=== PATIENT | male | born 1945 | race Caucasian/White ===

== ENCOUNTER 2017-03-14 19:47 | Inpatient (IN) | payer BC ==
--- NOTE | ~2017-03-14 | CN ---
Consultation Report [place] [id number] [facility] [place]. [address] NAME: JESSY HERNANDEZ : 47 STATUS : ADM IN PAT#: [id number] AGE: 72 ADM/REG DATE : 03/14/17 MR#: [id number] REPORT SERV DATE: 03/15/17 DICTATED BY: MOISÉSYVONNEYUEALEXANDRIA ESQUIVEL DATE: 03/15/17 REPORT STATUS : Draft TRANSCRIBED BY: MODL DATE: 03/15/17 CONSULTATION DATE OF CONSULTATION: 03/14/2017 REASON FOR CONSULTATION: Consulted for preop clearance for surgery. IDENTIFYING DATA: 1. PCP Brent Rachel. 2. Oncology Dr. Juaquin Castellanos. 3. Surgeon Dr. Gil. 4. Folding Machine Feeder Dr. Serna. HISTORY OF PRESENT ILLNESS: This is a pleasant 72-year-old, male, admitted per Dr. Juaquin Lora with sepsis of the right knee. He has a medical history of a bleeding ulcer, malignant melanoma of his back, hypertension and diabetes type 2. We have been consulted, the hospitalist group, to help manage medically and clear for surgery possibly in the a.m. for his right knee. The patient's history was obtained through interview with the patient. There is very little if any of SIGKAT and Juxinli prior to this admission. PAST MEDICAL HISTORY: 1. Bleeding ulcer. 2. Malignant melanoma of the back in 2016. 3. Hypertension. 4. Diabetes type 2. ALLERGIES: NO KNOWN ALLERGIES. MEDICATION: Home medications which are still being evaluated by pharmacy. SOCIAL HISTORY: The patient is for 29 years. He has one adopted daughter and one daughter by his 's previous marriage. They have no children together. 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 He states now that he cares for his at home who has had a CVA. He has three grand-children, lives in a two-story home but he uses bedroom downstairs. No tobacco, rare alcohol use he says it has been two to three months ago, and no illicit drug use. FAMILY HISTORY: Mother was positive for diabetes. Father was positive for hypertension. The patient had one sister who was also diabetic. SURGICAL HISTORY: 1. Kidney stone removal in 2011 and 2013. Consultation Report [address] [id number] [facility] [place]. [address] NAME: JESSY HERNANDEZ : 47 STATUS : ADM IN PAT#: [id number] AGE: 72 ADM/REG DATE : 03/14/17 MR#: [id number] REPORT SERV DATE: 03/15/17 DICTATED BY: YUE CURIEL DATE: 03/15/17 REPORT STATUS : Draft TRANSCRIBED BY: ROSANA DATE: 03/15/17 2. Eye surgery on 10/17/2009. 3. Left knee surgery 09/24/2005. 4. Colonoscopy 08/31/2006 and again in 09/17/2013. 5. Hernia surgery 12/21/1999. 6. Removal of a malignant melanoma from his back in 2015. 7. Basal cell cancers removed in 1999 and again in September 2012 on his left arm and chest, and he states previously he has also had a basal cells removed from his face and both ears. REVIEW OF SYSTEMS: Negative other than what is in HPI. The patient has no shortness of breath. No nausea, vomiting. No abdominal pain. No chest pain. Displays no fever. No confusion or agitation. PHYSICAL EXAMINATION: VITAL SIGNS: From today blood pressure 134/67, respiratory rate 20, heart rate 82, temperature 98.3, O2 saturation 97% on room air. GENERAL: This is a pleasant 72-year-old, male, admitted for right knee sepsis. He is resting in bed in no acute distress. Very talkative and pleasant. NEURO: His head is atraumatic, normocephalic. He is alert and oriented x3. His cranial nerves are intact. His mood is pleasant and appropriate. NECK: Supple. Trachea is midline. No JVD noted. No obvious thyromegaly or lymphadenopathy. EENT: Sclerae are nonicteric. Pupils are equal, reactive to light. Nares are patent. Mucous membranes moist. Tongue is midline. No deviation. Soft palate rises equally with phonation. CHEST: No pain with palpation. The patient has Port-A-Cath in place to the right chest. LUNGS: Clear to auscultation bilaterally. He has normal respiratory effort. No increased work of breathing with conversation. CARDIOVASCULAR: S1, S2. No obvious murmurs, rubs, or gallops. The patient is on telemetry, displays a sinus rhythm at a rate of 65 with occasional PVC and PAC noted. ABDOMEN: Soft, nontender. Bowel sounds are active. No palpable organomegaly. EXTREMITIES: He is edematous especially to the right knee. He has normal distal pulses. No calf tenderness. He has TEDs and SCDs placed for DVT prophylaxis. SKIN: Warm and dry. No unusual rashes or lesions. Normal color and turgor for age. PSYCH: The patient is pleasant, cooperative, appropriate mood and affect. LABORATORY DATA: Laboratory data has been just ordered, this was a late consult, it is almost 11 o'clock. We have x-ray and labs pending which would include CMP, CBC, PT, PTT, urinalysis and a type and screen, presently as well as a chest x-ray, and an EKG. Additional labs will be a hemoglobin A1c, TSH, troponin, BNP, a lactate, and a procalcitonin. ASSESSMENT AND PLAN: 1. The patient is diabetic type 2. He states he checks his blood sugars maybe one to two Consultation Report [address] [place]. [address] NAME: JESSY HERNANDEZ : 47 STATUS : ADM IN [facility]#: [id number] AGE: 72 ADM/REG DATE : 03/14/17 MR#: [id number] REPORT SERV DATE: 03/15/17 DICTATED BY: YUE CURIEL DATE: 03/15/17 REPORT STATUS : Draft TRANSCRIBED BY: ROSANA DATE: 03/15/17 time per day at most and other times not at all. We will have a advertising teacher see him. He will be placed on a diabetic diet, a 1500 calorie ADA, when he is n.p.o., after he is off the n.p.o. status, we will initiate fingerstick blood sugars a.c. and h.s. and have a sliding scale level 1 initiated with a hypoglycemic protocol. We will check a blood sugar x1 at 3 a.m. and check a hemoglobin A1c. 2. Hypertension. Aware. The patient is on amlodipine and lisinopril hydrochlorothiazide combo. We will need to hold the lisinopril and the hydrochlorothiazide until all the labs were obtained to make sure he does not have renal insufficiency. 3. Gastroesophageal reflux disease. The patient has a history of a bleeding ulcer in the past. We will place him on a Protonix 40 mg p.o. daily. The patient will also be placed on telemetry with O2 saturation monitoring tonight. The a.m. team may have to evaluate additional labs and orders since they were ordered late for evaluation of preop clearance for surgery. The hospitalist group would like to thank you for this consultation. Please let us know if we could be of further assistance. Pending labs, x-ray, and UA as well as EKG. The patient has no history of cardiac problems. No chest pain. No dyspnea on exertion. No history of sleep apnea or any respiratory problems. Pending labs and additional orders, we would recommend that Dr. Lora could proceed at his discretion for surgery. JOLYNN Yue Curiel NP / [id number] CC: Luis Shine
--- NOTE | ~2017-03-14 | OP ---
Record Of Operation [facility] [address] [place]. [address] NAME: JESSY HERNANDEZ : 47 STATUS : ADM IN PAT#: [id number] AGE: 72 ADM/REG DATE : 03/14/17 MR#: [id number] REPORT SERV DATE: 03/16/17 DICTATED BY: FERNANDO LORA DATE: 03/15/17 REPORT STATUS : Draft TRANSCRIBED BY: MODL DATE: 03/15/17 DATE OF PROCEDURE: 03/15/2017 PREOPERATIVE DIAGNOSIS: Right septic [place] knee. 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 PROCEDURES PERFORMED: Right knee arthroscopic irrigation and debridement with partial medial and lateral meniscectomy, debriding chondroplasty where appropriate, and extensive synovectomy with application of Vinny-Parker drain. SURGEON: Fernando Lora M.D. SHOE RECONDITIONER: Fior Cisneros. ANESTHESIA: General. PROCEDURE IN DETAIL: The patient is clearly identified, and after obtaining informed consent, he is brought to the operating room at [facility] where he is induced under general anesthesia as his right lower extremity prepped and draped in the usual manner. This concluded, after appropriate time-out procedure is performed, elevation exsanguination is performed, time-out procedure is performed, an aspiration of the knee reveals persistent pus in the joint which is sent to pathology for assessment. Subsequently, anteromedial and anterolateral portals performed. Arthroscopy begins revealing pus in the joint, which is all irrigated copiously through the case consisting of nearly 12 liters of fluid. Suprapatellar pouch reveals strands of tissues as well as significant synovitis, which is encountered through the joint, all debrided. Patellofemoral tracking is excellent despite some chondromalacia grade 2-3. The ACL and PCL are intact. The medial compartment reveals a complex meniscal tear, which is treated with partial medial meniscectomy and some chondromalacia which is debrided as well after removing fibrinous bands of tissue and synovitis. The lateral compartment reveals similar findings which is treated again with a partial lateral meniscectomy, debriding chondroplasty, removal of unusual soft tissues, and by palpating the posterior joint, pus is encountered, this is all carefully performed repetitively with pulsatile joint lavage to remove any evidence of cloudy fluid or fluid other than just the saline being run through the joint. This concluded, the joint is inspected, realizing no further care is necessary, a LISA drain is placed in the lateral portal and then the joints and drained, after confirming the drain working nicely, then portals are closed laterally in particular such that when the drain is removed, the portal will close and then the leg is carefully cleansed and dressed. The patient is allowed to awaken and is transferred to the recovery room in stable condition having tolerated the procedure well. ESTIMATED BLOOD LOSS: 10 mL. FLUIDS: 800 mL. Record Of Operation [facility] [address] [facility] [place]. [address] NAME: JESSY HERNANDEZ : 47 STATUS : ADM IN [facility]#: [id number] AGE: 72 ADM/REG DATE : 03/14/17 MR#: [id number] REPORT SERV DATE: 03/16/17 DICTATED BY: FERNANDO LORA DATE: 03/15/17 REPORT STATUS : Draft TRANSCRIBED BY: ROSANA DATE: 03/15/17 TOURNIQUET TIME: Approximately 40 minutes. PATHOLOGY: Sent specimen. MICROBIOLOGY: Sent specimen. COMPLICATIONS: None. SPONGE AND NEEDLE COUNTS: Reportedly correct. ANTIBIOTICS: Administered appropriately preoperatively and ordered to be continued postoperatively. YURI/ROSANA Fernando Lora M.D. / [id number] CC: Fernando Lora M.D.
--- NOTE | ~2017-03-14 | DS ---
Discharge Summary [facility] [address] [place]. [address] NAME: JESSY HERNANDEZ : 47 STATUS : DIS IN PAT#: [id number] AGE: 72 ADM/REG DATE : 03/14/17 MR#: [id number] REPORT SERV DATE: 03/29/17 DICTATED BY: FERNANDO LORA DATE: 03/28/17 REPORT STATUS : Draft TRANSCRIBED BY: ROSANA DATE: 03/28/17 Data Collection from hospitalization DISCHARGE DIAGNOSES: 1. 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 2. Medial and lateral meniscal tear. 3. Extensive synovitis. 4. Hypertension. 5. Type 2 diabetes. 6. History of bleeding ulcer. 7. History of malignant melanoma of the back. CONSULTATIONS: 1. Yue Staton NP. 2. Zac Dsouza M.D. PROCEDURES PERFORMED: Right knee arthroscopic irrigation and debridement with partial medial and lateral meniscectomy, debriding chondroplasty where appropriate and extensive synovectomy with application of Vinny-Parker drain on 03/15/2017. MEDICATIONS: Norvasc 10 mg daily, Ecotrin 325 mg daily, Tenormin 25 mg at bedtime, Lipitor 40 mg daily, Colace 100 mg twice a day, ferrous sulfate 300 mg with breakfast and supper, Glucotrol XL 2.5 mg twice a day, Glucophage 1000 mg twice a day, Prinzide one tablet twice a day, Theragran tablets one tablet with breakfast, Klor-Con 20 mEq twice a day, Senokot two tablets daily, Tylenol 1000 mg daily as needed, Mylanta 30 mL as needed Dulcolax 15 mg as needed, Benadryl 25 mg every six hours as needed, milk of magnesia 30 mL as needed, Zofran 4 mg every four hours as needed, MiraLAX powder one packet twice a day as needed, Roxicodone 5 10 mg every four hours as needed, and Ancef 2 g IV every eight hours through 04/06/2017. CONDITION AT DISCHARGE: Stable. DISPOSITION: The patient was discharged to [facility] on an 1800-calorie diabetic diet with activities as instructed. He would follow up with ne 14 days following discharge. HOSPITAL COURSE: This is a 72-year-old man who has a history of right knee osteoarthritis. The patient was felt to have right septic [place] knee with chondromalacia grade 2-4 and medial and lateral meniscal tears and extensive synovitis. Treatment options were discussed and it was elected to proceed with surgical intervention. He was admitted to the hospital at this time for further evaluation and treatment. Upon admission, he was seen in preoperative clearance consultation by Yue Staton. The patient has a history of hypertension and type 2 diabetes. Hemoglobin A1c was going to be checked as well as TSH, troponin, BNP, lactate, and procalcitonin. The patient says that he checks his blood sugars maybe once or twice per day at most and other times not at all. He was going to undergo diabetes education. He was going to be placed on a diabetic diet. He was being held n.p.o. after midnight at this time. Level 1 sliding scale insulin was going to be initiated with hypoglycemic protocol. The patient is on amlodipine and Discharge Summary [address] [address] NAME: JESSY HERNANDEZ : 47 STATUS : DIS IN PAT#: [id number] AGE: 72 ADM/REG DATE : 03/14/17 MR#: [id number] REPORT SERV DATE: 03/29/17 DICTATED BY: FERNANDO LORA DATE: 03/28/17 REPORT STATUS : Draft TRANSCRIBED BY: ROSANA DATE: 03/28/17 lisinopril/hydrochlorothiazide combo. Lisinopril would be held as well as the hydrochlorothiazide until all labs were obtained to make sure he did not have renal insufficiency. The patient has a past history of a bleeding ulcer and has gastroesophageal reflux disease. He was placed on daily Protonix. He was going to be placed on telemetry with O2 saturation monitoring. It was recommended that the patient proceed with surgery. The following day, the patient was taken to the operating room where he underwent the above- mentioned procedure. He tolerated this well. There were no complications. On postop day #1, he was seen by Dr. Zac Dsouza for evaluation and treatment of septic arthritis of the right knee. The patient had received both vancomycin. He had undergone an arthrocentesis on 03/14/2017, which revealed 150,000 red cells, 72,300 white cells, and 75% segs. Culture was growing what appeared to be alpha Strep. White blood cell count was 7.1. His impression included septic arthritis following a steroid injection with cultures appearing to show strep. He was going to be covered with vancomycin for now. Followup culture results would be obtained the following day. Antibiotics would be changed as indicated. It was felt that he would need at least a three-week course of high-dose antibiotics, likely IV. He underwent diabetes education. He was evaluated by Occupational and Physical Therapy. The following day, he had no new symptoms. He was afebrile. Vancomycin was continued. His cultures had revealed strep. He was up sitting in a chair. He denied chest pain or shortness of breath. He had not had a bowel movement in several days. Hemoglobin A1c was 6.8. A laxative was given for constipation. Discharge planning was performed. His blood pressure was controlled. On 03/18/2017, he has sitting in a chair. He was anxious to go to rehab. CISCO hose were in place. He still has some constipation. Blood cultures remained negative. He was changed to Ancef. Discharge instructions were given. Due to his improved and stable condition, he was discharged to [facility] with the above- stated instructions. Information collected by: Kaleigh Tabor I submit the above information as my discharge summary. TG/MODL Fernando Lora M.D. / [id number] CC: Luis Shine STEPHEN S Mark Anderson, M.D. [facility]
--- NOTE | ~2017-03-14 | CN ---
Consultation Report [facility] [address] [place]. [address] NAME: JESSY HERNANDEZ : 47 STATUS : ADM IN PAT#: [id number] AGE: 72 ADM/REG DATE : 03/14/17 MR#: [id number] REPORT SERV DATE: 03/16/17 DICTATED BY: JASSI RIVAS DATE: 03/16/17 REPORT STATUS : Draft TRANSCRIBED BY: MODL DATE: 03/16/17 INFECTIOUS DISEASE CONSULT DATE OF CONSULTATION: 03/16/2017 REASON FOR REFERRAL: Evaluation and treatment of septic arthritis of the right knee. HISTORY OF PRESENT ILLNESS: The patient is a 72-year-old male. He has a history of hypertension, diabetes mellitus, has a melanoma that was removed from his back in 2016, for which he takes chemotherapy via a port in his right chest and this is interferon, has past bleeding ulcers due to peptic ulcer disease, but not an active problem at present. He has had chronic pain in both knees for many years, had a total knee arthroplasty on the left fifteen years ago. It was recommended 10 years ago that he have the right done, but he has resisted that and has gotten periodic steroid injections. He thinks a total of about four since then. The most recent was done by Orthopedics on 03/10/2017. He said he did well for two days but three days after the injection, developed severe pain in that right knee to the point he could not stand on it. He had no fevers, chills, malaise, or flu-like symptoms. It was warm, but no outward signs of infection otherwise. He was seen on 03/14/2017 and underwent arthrocentesis, revealed 150,000 red cells, 72,300 white cells, 75% segs, submitted for cultures that is growing what appears to be an alpha strep. He was admitted yesterday by Dr. Lora, taken to surgery for a washout, and a culture sent last evening and it is only 12 hours old, but negative thus far. He was given both vancomycin and Ancef. He was on no antibiotics prior to the aspirate on Tuesday, other than the steroid injection there has been no other trauma to it. No past surgeries on it and no unusual environmental exposures. PAST MEDICAL HISTORY: Otherwise, unremarkable. MEDICATIONS: As described above. ALLERGIES: HE HAS NO KNOWN ANTIMICROBIAL ALLERGIES. SOCIAL HISTORY: He is . 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 He does not smoke and has rarely ever used alcohol. No history of drug abuse. FAMILY HISTORY: Diabetes and hypertension. PHYSICAL EXAMINATION: GENERAL: He is a nontoxic, elderly male, in no acute distress. Alert and oriented x3. VITAL SIGNS: Temperature at admission was 98.3, it went up to 100.3 early this morning following his procedure, is 97.8 at present with a pulse of 78, respirations 12, blood pressure 111/57, and weight 103 kg. HEENT: Sclerae clear. No oral lesions. Consultation Report [address] [place]. [address] NAME: JESSY HERNANDEZ : 47 STATUS : ADM IN [facility]#: [id number] AGE: 72 ADM/REG DATE : 03/14/17 MR#: [id number] REPORT SERV DATE: 03/16/17 DICTATED BY: JASSI RIVAS DATE: 03/16/17 REPORT STATUS : Draft TRANSCRIBED BY: ROSANA DATE: 03/16/17 NECK: Supple without lymphadenopathy. LUNGS: Clear. HEART: Regular rate and rhythm. ABDOMEN: Soft and nontender. Positive bowel sounds. EXTREMITIES: Right knee is covered by a thick bulky postoperative dressing. Leg above and below appeared to be normal. No other extremity or soft tissue lesions noted. No rashes. He has a Port-A-Cath in his right chest that shows no warmth, redness, or tenderness. LABORATORY DATA: White count 7.1 today, it was 6.6 when he came in. Hematocrit today 33.5, platelets 225. Unremarkable differential. His BUN and creatinine 18 and 0.86. He had a procalcitonin yesterday that was 0.05. IMPRESSION: Septic arthritis following a steroid injection with cultures appearing to show a strep so far but further identification of that is still pending. RECOMMENDATIONS: 1. We will cover with vancomycin for now. 2. Follow up with cultures tomorrow, change antibiotics as indicated. 3. We will plan at least a three-week course of high-dose antibiotics likely IV. Finally, I will follow the patient with you. I appreciate very much your consulting on this patient. JADA/MODL Jassi Rivas M.D. / [id number] CC: Juaquin Lora M.D.
[2017-03-14 15:14] LABS: BD FL LYMPH (NOT ORD) 1 %; BF BASO (NOT OF) 0 %; BF LARGE MONONUCLEAR 24 %; BODY FLUID EOS (NOT ORD) 0 %; BODY FLUID SEG (NOT ORD) 75 %
[2017-03-14 15:15] LABS: BF TOTAL CELL CT (NOT ORD 72300 /MM3
[2017-03-14 15:17] LABS: BODY FLUID RBC (NOT ORD) 150000 /MM3
[2017-03-14 15:47] LABS: BD FL SOURCE (NOT ORD) KNEE
[2017-03-15 04:13] LABS: BASOPHILS 0.2 %; BASOPHILS ABSOLUTE 0.01 10/3/uL (0.0-0.16); EOSINOPHILS 0 %; HEMATOCRIT 33.6 % (40.0-51.0); HEMOGLOBIN 11.8 g/dL (13.6-17.8); IMMATURE GRANULOCYTES 0.3 %; IMMATURE GRANULOCYTES ABSOLUTE 0.02 10/3/uL (0.0-0.11); LYMPHOCYTES 9.1 %; MEAN CORPUS HGB CONC 35.1 g/dL (32.0-36.0); MEAN CORPUSCULAR HEMOGLOB 30.6 pg (26.0-34.0); MEAN CORPUSCULAR VOLUME 87.3 fL (80-100); MEAN PLATELET VOLUME 9.6 fL (9.2-13.0); MONOCYTES 9.7 %; MONOCYTES ABSOLUTE 0.64 10/3/uL (0.21-1.20); NEUTROPHILS 80.7 %; PLATELET COUNT 187 10/3/uL (150-400); RBC DISTRIBUTION WIDTH 14.8 % (12.0-16.0); RED CELL COUNT 3.85 10/6/uL (4.7-6.1); WHITE BLOOD CELLS 6.6 10/3/uL (4.5-10.5)
[2017-03-15 04:19] LABS: MANUAL DIFF NO %
[2017-03-15 04:21] LABS: PARTIAL THROMBO TIME 33.7 SEC (22.5-37.2); PROTIME (NOT ORD) 13.4 SEC (12.0-14.5)
[2017-03-15 04:37] LABS: A/G RATIO 0.8 (0.7-1.9); ALKALINE PHOSPHATASE 60 U/L (45-117); BUN (BLOOD UREA NITROGEN) 17 MG/DL (6-23); CALCIUM, SERUM 8.5 MG/DL (8.5-10.4); CHLORIDE, SERUM 100 MMOL/L (96-112); CO2 (CARBON DIOXIDE) 27 MMOL/L (24-34); CREATININE 0.71 MG/DL (0.70-1.30); GFR AFRICAN AMERICAN 109 ML/MIN (>=60); GFR NON AFRICAN AMERICAN 94 ML/MIN (>=60); GLOBULIN 3.7 G/DL (2.5-4.1); GLUCOSE, SERUM 177 MG/DL (60-99); POTASSIUM, SERUM 4.3 MMOL/L (3.5-5.3); SGOT(AST) 15 U/L (5-40); SGPT(ALT) 24 U/L (5-65); SODIUM, SERUM 135 MMOL/L (135-148); TOTAL BILIRUBIN 0.5 MG/DL (0-1.2); TOTAL PROTEIN 6.7 G/DL (6.0-8.5)
[2017-03-15 07:13] LABS: TROPONIN I 0.03 NG/ML (<0.05); ULTRASENSITIVE TSH 0.385 MCIU/ML (0.358-3.740)
[2017-03-15 07:26] LABS: B NATRIURETIC PEPTIDE (BNP) 139.1 PG/ML (< 100.0)
[2017-03-15 07:43] LABS: ASCORBIC ACID (UR NOT ORDER) NEG (NEG); BILIRUBIN, URINE NEGATIVE (NEG); KETONE, URINE 20 MG/DL (NEG); LEUKOCYTE ESTERASE(NOT OR NEG (NEG); WBC (NOT ORDERED) (RFLEX) 1 (0-5)
[2017-03-15 07:58] LABS: GLYCOHEMOGLOBIN (HbA1c) 6.8 % (4.7-6.1)
[2017-03-15 08:00] LABS: PROCALCITONIN <0.05 ng/mL (<0.5)
[2017-03-15] MEDS ORDERED: NORCO1 TA1 PO (14:52)
[2017-03-15] MEDS ORDERED: KLOR-CON M2020 MEQ PO (14:52)
[2017-03-15] MEDS ORDERED: ACET500CAP PO (14:52)
[2017-03-15] MEDS ORDERED: NORV10 PO (14:53)
[2017-03-15] MEDS ORDERED: LIPITOR40 PO (14:53)
[2017-03-15] MEDS ORDERED: GLUCXL2.5 PO (14:53)
[2017-03-15] MEDS ORDERED: ATEN25 PO (14:53)
[2017-03-15] MEDS ORDERED: GLUCOPHAGE1000 MG PO (14:54)
[2017-03-15] MEDS ORDERED: PRINZIDE1 TA1 PO (14:54)
[2017-03-16 05:18] LABS: BUN (BLOOD UREA NITROGEN) 18 MG/DL (6-23); CALCIUM, SERUM 8.1 MG/DL (8.5-10.4); CHLORIDE, SERUM 104 MMOL/L (96-112); CO2 (CARBON DIOXIDE) 29 MMOL/L (24-34); CREATININE 0.86 MG/DL (0.70-1.30); GFR AFRICAN AMERICAN 101 ML/MIN (>=60); GFR NON AFRICAN AMERICAN 87 ML/MIN (>=60); GLUCOSE, SERUM 190 MG/DL (60-99); POTASSIUM, SERUM 4.5 MMOL/L (3.5-5.3); SODIUM, SERUM 139 MMOL/L (135-148)
[2017-03-16 05:35] LABS: BASOPHILS 0 %; EOSINOPHILS 0 %; HEMATOCRIT 33.5 % (40.0-51.0); HEMOGLOBIN 11.3 g/dL (13.6-17.8); IMMATURE GRANULOCYTES 0.3 %; IMMATURE GRANULOCYTES ABSOLUTE 0.02 10/3/uL (0.0-0.11); LYMPHOCYTES 17.9 %; LYMPHOCYTES ABSOLUTE 1.28 10/3/uL (0.67-4.30); MEAN CORPUS HGB CONC 33.7 g/dL (32.0-36.0); MEAN CORPUSCULAR HEMOGLOB 30.4 pg (26.0-34.0); MEAN PLATELET VOLUME 9.8 fL (9.2-13.0); MONOCYTES 10.4 %; MONOCYTES ABSOLUTE 0.74 10/3/uL (0.21-1.20); NEUTROPHILS 71.4 %; PLATELET COUNT 225 10/3/uL (150-400); RED CELL COUNT 3.72 10/6/uL (4.7-6.1); WHITE BLOOD CELLS 7.1 10/3/uL (4.5-10.5)
[2017-03-16 05:36] LABS: PROTIME (NOT ORD) 13.2 SEC (12.0-14.5)
[2017-03-16 05:38] LABS: MANUAL DIFF NO %; MEAN CORPUSCULAR VOLUME 90.1 fL (80-100)
[2017-03-17 01:29] LABS: HEMATOCRIT 32.7 % (40.0-51.0); HEMOGLOBIN 11.2 g/dL (13.6-17.8)
[2017-03-17 01:37] LABS: PROTIME (NOT ORD) 13.2 SEC (12.0-14.5)
[2017-03-18 05:14] LABS: BASOPHILS 0.2 %; BASOPHILS ABSOLUTE 0.01 10/3/uL (0.0-0.16); EOSINOPHILS 1.6 %; EOSINOPHILS ABSOLUTE 0.09 10/3/uL (0.0-0.53); HEMATOCRIT 30.5 % (40.0-51.0); HEMOGLOBIN 10.5 g/dL (13.6-17.8); IMMATURE GRANULOCYTES 0.2 %; IMMATURE GRANULOCYTES ABSOLUTE 0.01 10/3/uL (0.0-0.11); LYMPHOCYTES ABSOLUTE 1.45 10/3/uL (0.67-4.30); MEAN CORPUS HGB CONC 34.4 g/dL (32.0-36.0); MEAN CORPUSCULAR HEMOGLOB 30.2 pg (26.0-34.0); MEAN CORPUSCULAR VOLUME 87.6 fL (80-100); MEAN PLATELET VOLUME 9.4 fL (9.2-13.0); MONOCYTES 12.9 %; MONOCYTES ABSOLUTE 0.72 10/3/uL (0.21-1.20); NEUTROPHILS 59.1 %; NEUTROPHILS ABSOLUTE 3.29 10/3/uL (2.02-8.40); PLATELET COUNT 242 10/3/uL (150-400); RBC DISTRIBUTION WIDTH 14.8 % (12.0-16.0); RED CELL COUNT 3.48 10/6/uL (4.7-6.1); WHITE BLOOD CELLS 5.6 10/3/uL (4.5-10.5)
[2017-03-18 05:19] LABS: MANUAL DIFF NO %
[2017-03-18 05:23] LABS: PROTIME (NOT ORD) 13.3 SEC (12.0-14.5)
[2017-03-18 05:24] LABS: CALCIUM, SERUM 7.8 MG/DL (8.5-10.4); CHLORIDE, SERUM 100 MMOL/L (96-112); CO2 (CARBON DIOXIDE) 30 MMOL/L (24-34); CREATININE 0.53 MG/DL (0.70-1.30); GFR AFRICAN AMERICAN 123 ML/MIN (>=60); GFR NON AFRICAN AMERICAN 106 ML/MIN (>=60); GLUCOSE, SERUM 161 MG/DL (60-99); SODIUM, SERUM 135 MMOL/L (135-148)
[2017-03-18 05:49] LABS: BUN (BLOOD UREA NITROGEN) 13 MG/DL (6-23)
== END 2017-03-18 17:41 | DRG 489 ==
LOC: CDU1 19:47 → SDC/OF 03-15 17:46 → 3SO 03-15 22:53
PROVIDERS: Internal Medicine; Nurse Practitioner; Orthopaedic Surgery
PROC: 0SBC4ZZ Excision of Right Knee Joint, Percutaneous Endoscopic Approach (ICD-10-PCS; 2017-03-15)
PROC: 0S9C30Z Drainage of Right Knee Joint with Drainage Device, Percutaneous Approach (ICD-10-PCS; 2017-03-15)
PROC: 0SBC4ZZ Excision of Right Knee Joint, Percutaneous Endoscopic Approach (ICD-10-PCS; principal; 2017-03-15 19:15)
DX: M00.9 Pyogenic arthritis, unspecified (principal); E11.9 Type 2 diabetes mellitus without complications; I10 Essential (primary) hypertension; M94.261 Chondromalacia, right knee; S83.281A Other tear of lateral meniscus, current injury, right knee, initial encounter; M65.861 Other synovitis and tenosynovitis, right lower leg; S83.241A Other tear of medial meniscus, current injury, right knee, initial encounter; K59.00 Constipation, unspecified; K21.9 Gastro-esophageal reflux disease without esophagitis; Z79.84 Long term (current) use of oral hypoglycemic drugs; Z79.891 Long term (current) use of opiate analgesic; Z79.899 Other long term (current) drug therapy; Z85.820 Personal history of malignant melanoma of skin; Z87.442 Personal history of urinary calculi; Z87.11 Personal history of peptic ulcer disease; Z91.81 History of falling
CPT/HCPCS: 36415; 71010; 80048; 80053; 80202; 81001; 82962; 83036; 83605; 83735; 83880; 84145; 84443; 84484; 85014; 85018; 85025; 85610; 85730; 86850; 86900; 86901; 87015; 87040; 87070; 87075; 87077; 87102; 87116; 87186; 87205; 89051; 89060; 93005; 97110-GP; 97116-GP; 97162-GP; 97165-GO; 97535-GO; A9270-GY; J0690; J1170; J2250; J2270; J2405; J3010; J3370